=== PATIENT | female | born 1975 | race Caucasian/White ===

== ENCOUNTER 2019-10-28 06:46 | Day surgery (SDC) | payer OTHER ==
[~2019-10-28] VITALS: Ht 165.1 cm; Wt 80.8 kg
[2019-10-28] MEDS ORDERED: LACTATED RINGERS 1,000 ML IV SCH (07:06)
[2019-10-28 07:21] VITALS: BP 127/80
[2019-10-28] MEDS ORDERED: LIDOCAINE-MPF 1%, 2ML INFIL ONE (07:30)
[2019-10-28] MEDS ORDERED: ASCO-254 PO (07:54)
[2019-10-28] MEDS ORDERED: HYDR-3652 PO (07:54)
[2019-10-28] MEDS ORDERED: MULT-658 PO (07:54)
[2019-10-28] MEDS ORDERED: IBUP-1223 PO (07:54)
[2019-10-28] MEDS ORDERED: BUPIVACAINE/PF-EPI 0.25% 1:200K ONE (08:34)
[2019-10-28] MEDS ORDERED: LIDOCAINE 1%, 20ML ONE (08:34)
[2019-10-28] MEDS ORDERED: BUPIVACAINE/PF 0.5% ONE (08:34)
[2019-10-28 08:39] LABS: HCG UR SG 1.021 (1.003-1.030)
[2019-10-28] MEDS ORDERED: MIDAZOLAM 1 MG/ML, 2ML ONE (08:46)
[2019-10-28] MEDS ORDERED: FENTANYL PF 100 MCG/2ML ONE (08:46)
[2019-10-28] MEDS ORDERED: SODIUM CHLORIDE 0.9% PF 10ML ONE ×2 (08:49)
[2019-10-28] MEDS ORDERED: CEFAZOLIN 1,000 MG ONE (08:49)
[2019-10-28] MEDS ORDERED: DIPHENHYDRAMINE 50 MG/ML, 1ML ONE (08:54)
[2019-10-28] MEDS ORDERED: DEXAMETHASONE 4 MG/ML, 1ML ONE ×2 (09:00)
[2019-10-28] MEDS ORDERED: KETOROLAC 30 MG/1 ML ONE (09:00)
[2019-10-28] MEDS ORDERED: ONDANSETRON 2MG/ML, 2ML ONE ×2 (09:01)
[2019-10-28] MEDS ORDERED: EPINEPHRINE 1 MG/ML, 1ML ONE (09:06)
[2019-10-28] MEDS ORDERED: PROPOFOL 10 MG/ML, 20ML ONE (09:16)
[2019-10-28] MEDS ORDERED: PROMETHAZINE 25 MG/ML, 1ML IV PRN (09:30)
[2019-10-28] MEDS ORDERED: ONDANSETRON 2MG/ML, 2ML IV PRN (09:30)
[2019-10-28] MEDS ORDERED: OXYcodone 5 MG/5 ML ORAL.SOL UDC PO PRN (09:30)
[2019-10-28] MEDS ORDERED: ACETAMINOPHEN 325 MG TABLET PO PRN (09:30)
[2019-10-28] MEDS ORDERED: HYDROmorphone 2 MG/ML, 1ML IVPush PRN (09:30)
[2019-10-28] MEDS ORDERED: EPHEDRINE 50 MG/ML, 1ML IVPush PRN (09:30)
[2019-10-28] MEDS ORDERED: hydrALAzine 20 MG/ML, 1ML IV PRN (09:30)
[2019-10-28] MEDS ORDERED: FENTANYL PF 100 MCG/2ML IV PRN (09:30)
[2019-10-28] MEDS ORDERED: MEPERIDINE/PF 25MG/ML,1ML IVPush PRN (09:30)
[2019-10-28] MEDS ORDERED: LABETALOL 5MG/ML, 20ML IV PRN (09:30)
[2019-10-28] MEDS ORDERED: MEPERIDINE/PF 25MG/ML,1ML ONE (09:42)
== END 2019-10-28 12:10 | disposition home or self-care (01) ==
LOC: OUT 06:46
PROVIDERS: ATTEND Orthopaedic Surgery
DX: S62.626A Displaced fracture of middle phalanx of right little finger, initial encounter for closed fracture (principal); X58.XXXA Exposure to other specified factors, initial encounter; Y93.89 Activity, other specified; Y92.89 Other specified places as the place of occurrence of the external cause; Y99.8 Other external cause status
CPT/HCPCS: 26735; 73140; 76000; 81025; C1713; J0171; J0690; J1100; J1200; J1885; J2175; J2250; J2405; J2704; J3010; J7120